=== PATIENT | female | born 1965 | race Caucasian/White ===

== ENCOUNTER 2016-10-29 17:22 | Emergency (ER) | payer OTHER ==
[2016-10-29 17:46] VITALS: BP 115/83; PULSE 101; TEMP 98.3; BMI 31.1
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
== END 2016-10-29 19:11 | disposition home or self-care (01) ==
LOC: FER 17:22
DX: T20.05XA Burn of unspecified degree of scalp [any part], initial encounter (principal); X08.8XXA Exposure to other specified smoke, fire and flames, initial encounter; Y93.89 Activity, other specified; Y92.9 Unspecified place or not applicable; T20.45XA Corrosion of unspecified degree of scalp [any part], initial encounter; Z87.891 Personal history of nicotine dependence; K21.9 Gastro-esophageal reflux disease without esophagitis
CPT/HCPCS: 99281-25

== ENCOUNTER 2023-07-10 04:42 | Day surgery (SDC) | payer BC ==
[2023-07-08 12:40] VITALS: BMI 34.7
[2023-07-10 08:16] VITALS: TEMP 98.2
[2023-07-10 09:33] VITALS: RESP 18
[2023-07-10 10:31] VITALS: BP 110/66; PULSE 65
== END 2023-07-10 10:31 | disposition home or self-care (01) ==
LOC: JASU-ENDO 04:42
PROVIDERS: ATTEND Internal Medicine Gastroenterology
PROC: 0DBP8ZX Excision of Rectum, Via Natural or Artificial Opening Endoscopic, Diagnostic (ICD-10-PCS; principal; 2023-07-10 09:00)
DX: Z12.11 Encounter for screening for malignant neoplasm of colon (principal); D12.8 Benign neoplasm of rectum; K64.8 Other hemorrhoids
CPT/HCPCS: 88305-TC